=== PATIENT | female | born 1980 | race Caucasian/White ===

== ENCOUNTER → 2017-08-11 12:55 | Outpatient (CLI) | payer BC, SELFPAY ==
[2017-08-11 14:18] LABS: Absolute Neutrophil Count 5.5 X10^3/uL (2.0-7.7); Basophil# 0.02 X10^3/uL; Basophil% 0.2 % (0-1); Eosinophil# 0.33 X10^3/uL; Eosinophils% 3.7 % (0-5); Hematocrit 42.2 % (37-47); Hemoglobin 13.6 g/dl (12.0-15.0); Mean Corp Hgb Conc 32.2 g/gl (32-36); Mean Corpuscular Hgb 28.1 pg (27.0-32.0); Mean Corpuscular Volume 87.2 fL (81-99); Mean Platelet Vol. 10.9 fl (6.2-12.0); Monocyte# 0.65 X10^3/uL; Monocyte% 7.3 % (0-10); Neutrophil # 5.54 X10^3/uL (2.7-7.7); Neutrophil % 62.6 % (47-70); Platelet Count 257 K/mm3 (150-450); RBC Distribution Width CV 12.6 % (11.6-14.6); RBC Distribution Width SD 40.4 fl (35.1-43.9); Red Blood Count 4.84 M/mm3 (4.2-5.4); White Blood Count 8.9 K/mm3 (4.4-11.0)
[2017-08-11 14:22] LABS: POSITIVE COUNT NO; POSITIVE DIFFERENTIAL NO; POSITIVE MORPHOLOGY NO
[2017-08-11 14:38] LABS: Albumin, Serum 3.9 g/dL (3.2-5.0); Calcium,Total 8.8 mg/dL (8.5-10.1)
[2017-08-12 10:24] LABS: Vitamin D,25 Hydroxy 16.2 ng/mL (19.95-100.01)
== END ==
PROVIDERS: Family Provider Family Medicine; PCP Family Medicine; Visit Provider Family Medicine
DX: L30.1 Dyshidrosis [pompholyx] (principal); E55.9 Vitamin D deficiency, unspecified
CPT/HCPCS: 36415; 82040; 82306; 82310; 85025

== ENCOUNTER → 2017-09-19 16:38 | Outpatient (CLI) | payer BC, SELFPAY ==
[2017-09-19 17:37] LABS: Absolute Lymphocyte Count 3.22 X10^3/ul (0.83-4.51); Absolute Neutrophil Count 6.8 X10^3/uL (2.0-7.7); Basophil# 0.04 X10^3/uL; Basophil% 0.4 % (0-1); Eosinophil# 0.45 X10^3/uL; Hematocrit 40.6 % (37-47); Hemoglobin 13.5 g/dl (12.0-15.0); Lymphocyte # 3.22 X10^3/ul (4.0); Lymphocyte % 28.5 % (19-41); Mean Corp Hgb Conc 33.3 g/gl (32-36); Mean Corpuscular Hgb 28.6 pg (27.0-32.0); Mean Platelet Vol. 10.8 fl (6.2-12.0); Monocyte# 0.77 X10^3/uL; Monocyte% 6.8 % (0-10); Neutrophil # 6.77 X10^3/uL (2.7-7.7); Neutrophil % 59.8 % (47-70); Platelet Count 305 K/mm3 (150-450); RBC Distribution Width CV 12.2 % (11.6-14.6); RBC Distribution Width SD 37.8 fl (35.1-43.9); Red Blood Count 4.72 M/mm3 (4.2-5.4); White Blood Count 11.3 K/mm3 (4.4-11.0)
[2017-09-19 17:52] LABS: POSITIVE COUNT NO; POSITIVE DIFFERENTIAL NO; POSITIVE MORPHOLOGY NO
[2017-09-19 17:58] LABS: Vitamin D,25 Hydroxy 42.5 ng/mL (29.95-100.01)
[2017-09-19 18:37] LABS: ALB/GLOB Ratio 1.2 RATIO (0.9-2.4); AST(SGOT) 25 U/L (15-37); Alanine Aminotransfer ALT/SGPT 61 U/L (13-56); Alkaline Phosphatase 107 U/L (45-117); Anion Gap 9 (5-15); BUN 12 mg/dL (7-18); BUN/Creat Ratio 21.1 RATIO (10-20); Calcium,Total 8.6 mg/dL (8.5-10.1); Chloride 106 mmol/L (98-107); Creatinine, Serum 0.57 mg/dL (0.55-1.02); EST Glomerular Filtration Rate 128 mL/min (>60); Est Glom Filt Rate - Afr Amer 155 mL/min (>60); Ferritin 110 ng/mL (8-252); Globulin 3.4 g/dL (2.2-4.2); Glucose 87 mg/dL (74-106); Potassium 4.2 mmol/L (3.5-5.1); Protein, Total 7.4 g/dL (6.4-8.2); Sodium Level 140 mmol/L (136-145); Thyroid Stim Hormone (TSH) 1.68 uIU/mL (0.358-3.74)
== END ==
PROVIDERS: Family Provider Family Medicine; PCP Family Medicine; Visit Provider Family Medicine
DX: R53.83 Other fatigue (principal); E55.9 Vitamin D deficiency, unspecified
CPT/HCPCS: 36415; 80053; 82306; 82728; 84443; 85025

== ENCOUNTER 2019-07-19 11:10 | Inpatient (IN) | payer BC, SELFPAY ==
[2019-06-11 13:53] VITALS: BMI 43.4
[2019-07-19] VITALS (15 sets, daily range): BP systolic 99–150; BP diastolic 56–100; PULSE 97–132; RESP 16–22; TEMP 36.9–38; O2SAT 95–100; BMI 42.9; BMI 42.5
--- NOTE | 2019-07-19 12:02 | EKG12_ITS ---
Test Reason : CP Blood Pressure : / mmHG Vent. Rate : 122 BPM Atrial Rate : 122 BPM P-R Int : 130 ms QRS Dur : 088 ms QT Int : 304 ms P-R-T Axes : 033 048 037 degrees QTc Int : 433 ms Sinus tachycardia Otherwise normal ECG Confirmed by HERIBERTO SALAZAR, ROSARIO ([id number]), video tape editor ISABELLA DAVISON ([id number]) on 07/24/2019 7:53:53 AM Referred By: AMANDEEP Confirmed By:ROSARIO LOUIS MD
--- NOTE | 2019-07-19 12:02 | RAD_ITS ---
STUDY: X-RAY CHEST REASON FOR EXAM: Female, 38 years old. DX WITH FLU A ON THE . PT STATES SHE IS HAVING MORE CHEST PAIN, COUGH, AND CAN''T GET A DEEP BREATH TECHNIQUE: PA and lateral views of the chest. COMPARISON: None. FINDINGS: EKG electrodes are seen. Left lower lobe infiltrate. Follow-up is recommended. Blunting of the left costophrenic angle. Normal size heart. Normal mediastinum and ignacia. Normal visualized pulmonary arteries. Normal visualized aortic arch and descending thoracic aorta. Normal visualized thoracic spine. Normal visualized ribs, clavicles, and shoulders. There is no demonstrated abnormality of the visualized soft tissue structures of the upper abdomen. RAD/Chest PA and Lateral IMPRESSION: Left lower lung infiltrate and small left effusion. Electronically Signed: Crow Johnson, at 12:47 EST , Service support ,
--- NOTE | 2019-07-19 12:08 | ED.DCSUM_ITS ---
- ER Visit Summary Date of Service: 07/19/19 Chief Complaint: Cough and left-sided chest pain History of Present Illness: The patient is a 38 F past medical history of asthma and recent influenza treated with Tamiflu. Patient states she had influenza A 07/10/2000 26. But is feeling better. Now has developed a cough denies any hemoptysis. And left-sided chest discomfort. She is never had a DVT or PE no recent travel or surgery. No leg pain or swelling. She denies any cardiac history. There is no family history of clotting disorder or cardiac disease at a young age. Physical Examination: Middle-aged female no acute distress she is tachycardic at 125 her pulse ox 97% on room air. H EENT exam unremarkable. Neck nontender no JVD. No lymphadenopathy. Lungs coarse breath sounds. Cough. No rhonchi. No significant wheezing. Heart tachycardic rate about 125 no murmur. Chest wall nontender. Abdomen soft obese but nontender normal bowel sounds no peritoneal signs. Patient moving all 4 extremities. Calves are nontender without edema or cords. Neurologically she is awake alert with no focal motor deficits. Back nontender. Skin unremarkable. Test Results: Chest pain it very well may be pleurisy versus possible pneumonia. I think is very unlikely to be cardiac and unlikely to be a PE. Her only recent risk factor for PE is recent illness and she is been less mobile otherwise she is a non-smoker. She is on control pills. Chest x-ray AP lateral views 2 views read by myself and radiologist shows a left lower lobe pneumonia with an effusion. CBC shows an elevated white count of 27,000. Normal hemoglobin 13. Chemistries unremarkable normal creatinine and gap. Troponin normal. D-dimer elevated 1.48. EKG sinus tachycardia rate of 122 no acute signs of TX or ischemia. No S1 or T3. Emergency Department Course and Treatment: Undergo an evaluation for possible pneumonia versus other etiologies. Treatment Plan: Admitted to PCU. I added a lactic acid and blood cultures. She will be started on IV Rocephin and Zithromax. She is already been given Motrin p.o. She also be given morphine and Zofran for pain. She also be given a liter normal saline. And worked up for possible sepsis. Lactic acid is pending. Disposition: Discharge Impression: Left-sided chest pain secondary to left lower lobe pneumonia with small effusion. Status post recent influenza Sepsis This note was generated with [employer] dictation software. It may contain incorrect words, spelling, and punctuation that were not noted in review of the chart prior to signing ED Disposition - Plan for ED Patient: Referrals: Karl Atwood MD [Primary Care Provider] -
[2019-07-19] MEDS: Ibuprofen 400 MG Tablet 800 MG PO (12:27)
[2019-07-19 12:31] LABS: Absolute Lymphocyte Count 0.64 X10^3/uL (0.83-4.51); Absolute Neutrophil Count 25.1 X10^3/uL (2.0-7.7); Basophil# 0.05 X10^3/uL; Basophil% 0.2 % (0-1); Eosinophil# 0.14 X10^3/uL; Eosinophils% 0.5 % (0-5); Hematocrit 39.8 % (37-47); Hemoglobin 13.4 g/dL (12.0-15.0); Lymphocyte # 0.64 X10^3/ul (4.0); Lymphocyte % 2.3 % (19-41); Mean Corp Hgb Conc 33.7 g/dL (32-36); Mean Corpuscular Hgb 28.9 pg (27.0-32.0); Monocyte# 0.89 X10^3/uL; Monocyte% 3.3 % (0-10); NRBC Flagged by Analyzer 0 % (0-5); Neutrophil # 25.07 X10^3/uL (2.7-7.7); Neutrophil % 91.9 % (47-70); POSITIVE DIFFERENTIAL YES; POSITIVE MORPHOLOGY YES; Platelet Count 247 K/mm3 (150-450); RBC Distribution Width CV 12.2 % (11.6-14.6); Red Blood Count 4.63 M/mm3 (4.2-5.4); White Blood Count 27.3 K/mm3 (4.4-11.0)
[2019-07-19 12:46] LABS: D-Dimer Quantitative (DVT/PE) 1.48 FEU/ug/m (0.27-0.49)
[2019-07-19 12:47] LABS: Differential Indicated SCAN CRITERIA MET
[2019-07-19 12:49] LABS: Anion Gap 7 (5-15); BUN 10 mg/dL (7-18); BUN/Creat Ratio 9.5 RATIO (10-20); Calcium,Total 8.6 mg/dL (8.5-10.1); Chloride 105 mmol/L (98-107); Creatinine, Serum 1.05 mg/dL (0.55-1.02); EST Glomerular Filtration Rate 62 mL/min (>60); Est Glom Filt Rate - Afr Amer 76 mL/min (>60); Estimated Creatinine Clearance 71.34 ml/min; Glucose 146 mg/dL (74-106); Potassium 4.1 mmol/L (3.5-5.1); Sodium Level 137 mmol/L (136-145)
--- NOTE | 2019-07-19 13:01 | CT_ITS ---
STUDY: CTA CHEST REASON FOR EXAM: Female, 38 years old. CHEST PAIN/TACHYCARDIA/ELEVATED D-DIMER RADIATION DOSAGE (If Supplied By Facility): CTDIvol = ( 26.08 ) mGy, DLP = ( 546.01 ) mGycm TECHNIQUE: The examination was performed with the intravenous administration of IV 100mL Isovue-370. Post-processing of the angiographic images was performed, with multiplanar reformation and 3D reconstruction. Individualized dose optimization techniques were used for this CT. COMPARISON: Comparison is made with prior chest radiograph done earlier in the day. FINDINGS: Small benign-appearing bilateral axillary lymph nodes. Normal enhancement of the main pulmonary artery and right and left pulmonary arteries. Normal enhancement of the bilateral peripheral pulmonary arteries. There is no demonstrated pulmonary embolism. Normal thoracic aorta and visualized great vessels. There is no demonstrated aortic dissection. Normal heart and pericardium. Normal mediastinum. Normal hilar regions. Normal visualized trachea and bronchi. The lungs are well expanded. Consolidation in the left lower lobe. Normal pleura. Normal chest wall structures. Normal osseous structures. Mild hepatomegaly and fatty infiltration of the liver. Small hiatal hernia. CT/CTA Chest W/WO Contrast IMPRESSION: Left lower lobe consolidation. Electronically Signed: Crow Johnson, at 14:01 EST , Service support ,
--- NOTE | 2019-07-19 13:02 | PCM.HP.STD ---
History of Present Illness Date of Admission: 07/19/19 Chief Complaint: fever, shortness of breath, cough The patient is a 38 year old F with a PMH of asthma. She was admitted through the ED on 07/19/2019 with a complaint of shortness of breath of fever, chills and shortness of breath. Patient states she was treated for influenza A infection about a week and a half ago. She finished her Tamiflu course. However she noted about a day ago that she was having fever with temperature peaking at home at 105 Fahrenheit. She also had chills and a cough which was nonproductive and she felt short of breath. She also generalized malaise so she decided to come into the ED. In the ED, temperature peaked at 100.4 Fahrenheit and she was tachycardic and tachypneic. CBC showed WBC of 27.3. Chemistry showed creatinine of 1.05 and lactic acid of 4.3. Initial troponin was negative. Chest x-ray showed left lower lobe infiltrate and small left effusion. EKG showed sinus tachycardia. She has been admitted to be managed for sepsis due to community-acquired pneumonia. Of note lactic acid was 4.3. [] Past Medical History Medical History: Medical History (Last Reviewed 06/11/19 @ 13:53 by Sandoval Walton) Diabetes E11.9 Allergies sulfamethoxazole [From Bactrim] Allergy (Verified 07/19/19 11:11) Anaphylaxis trimethoprim [From Bactrim] Allergy (Verified 07/19/19 11:11) Anaphylaxis Home Medications: Ambulatory Orders Medication Instructions Recorded cetirizine 10 mg tablet 10 mg PO QDAY 07/17/17 mometasone-formoterol HFA 100 2 puff INHALATION BID 07/17/17 mcg-5 mcg/actuation aerosol inhaler diphenhydramine HCl 25 mg capsule 25 mg PO Q4H PRN #60 cap 08/10/17 Psychiatric History: No pertinent psych hx [employer] 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 Denies: Anorexia, Night Sweats Eyes: Denies: Blurred vision HEENT: Denies: Head Aches, Sinus Congestion, Sinus Drainage Cardiovascular: Denies: Chest Pain, Palpitations Respiratory: Reports: Cough, Shortness of Breath, Shortness of breath at rest, Shortness of breath upon exertion. Denies: Sputum production, Wheezing Gastrointestinal: Denies: Abdominal Pain, Nausea, Vomiting Genitourinary: Denies: Dysuria Musculoskeletal: Denies: Joint Pain, Joint Tenderness Skin: Denies: Rash, Wounds Neurological: Denies: Numbness, Tingling, Focal weakness Psychiatric: Denies: Anxiety, Depression, Homicidal Ideations, Suicidal Ideations Hematologic/ Lymphatic: Denies: Easy Bruising, Easy Bleeding VTE Information - Inpt Only VTE Present on Admission: No VTE Pharm Prophylaxis ordered?: Yes - Physical Exam Vitals/I&O's: Vital Signs Temp Pulse Resp BP Pulse Ox 99.1 F 115 H 22 H 99/81 H 100 07/19/19 11:11 07/19/19 11:53 07/19/19 11:53 07/19/19 11:53 07/19/19 12:30 Oxygen Delivery Method Room Air Weight: 274 lb Body Mass Index (BMI) 42.9 General: Alert, Oriented x3, Cooperative, - - looked uncomfortable. Obese HEENT: Atraumatic, PERRLA, EOMI, Normocephalic Oral: Dry Mucosa Neck: Supple, No JVD, Negative Carotid Bruits Lungs: Short of Breath, Tachypneic, - - decreased breath sounds bibasally, no wheezes or crackles. on room air Cardiovascular: Normal S1, Normal S2, No murmurs, Tachycardic Abdomen: Bowel Sounds Present, Soft, Non Tender, Non-Distended, No Hepato-splenomegaly Extremities: No clubbing, No cyanosis, No edema, Capillary Refill Less than 3 Seconds Skin: No rashes, No breakdown Musculoskeletal: No Tenderness to Palpation of Joints or Extremities Lymphatic: No Cervical, Supraclavicular, or Inguinal Adenopathy Neurological: Cranial nerves II-XII grossly intact, Neuro grossly intact, Motor Exam 5/5 strength throughout Psych/Mental Status: Normal Affect, Appropriate, Alert and oriented to time, place, person, mood and affect Laboratory Results 07/19/19 12:25: WBC 27.3 H, RBC 4.63, Hgb 13.4, Hct 39.8, MCV 86.0, MCH 28.9, MCHC 33.7, RDW Std Deviation 38.0, RDW Coeff of Jana 12.2, Plt Count 247, MPV 10.0, Immature Gran % (Auto) 1.800 H, Neut % (Auto) 91.9 H, Lymph % (Auto) 2.3 L, [place] % (Auto) 3.3, Eos % (Auto) 0.5, Baso % (Auto) 0.2, Absolute Neuts (auto) 25.1 H, Absolute Lymphs (auto) 0.64 L, Nucleated RBC % 0, Differential Comment 07/19/19 12:25: D-Dimer Quant (PE/DVT) 1.48 H* 07/19/19 12:25: Sodium 137, Potassium 4.1, Chloride 105, Carbon Dioxide 25.0, Anion Gap 7, BUN 10, Creatinine 1.05 H, Estim Creat Clear Calc 71.34, Est GFR (MDRD) Af Amer 76, Est GFR (MDRD) Non-Af 62, BUN/Creatinine Ratio 9.5 L, Glucose 146 H, Calcium 8.6, Troponin I < 0.015 Diagnostic Data Chest X-Ray 07/19/19 12:02 IMPRESSION: Left lower lung infiltrate and small left effusion. Electronically Signed: Crow Johnson, at 12:47 EST , Service support , Chest CTA 07/19/19 13:01 IMPRESSION: Left lower lobe consolidation. Electronically Signed: Crow Johnson, at 14:01 EST , Service support , Current Medications Azithromycin 500 mg/ Dextrose 255 mls @ 250 mls/hr IV X1 ONE Stop: 07/19/19 14:00 Ceftriaxone Sodium (Rocephin) 1 gm in 50 mls @ 100 mls/hr IV X1 ONE Stop: 07/19/19 13:28 Assessment/Plan All Active Problems (Last Reviewed 06/11/19 @ 13:53 by Sandoval Walton) Sinusitis (Acute) Contact dermatitis (Acute) Herpes simplex (Acute) 1. Severe sepsis due to community acquired pneumonia Likely post viral pneumonia as she was recently treated for influenza. SIRS criteria is 4/4 with fever, tachypnea, tachycardia and white cell count of 27.3. Chest x-ray showed left lower lobe infiltrate. Lactic acid was 4.3. She is not hypotensive. Admit to PCU with telemetry. Hydrate aggressively with IV fluids per sepsis protocol. Get blood cultures and sputum cultures as well as urine for strep and Legionella. Sputum culture if sputum becomes productive. Start on IV vancomycin and Zosyn. CTA of the chest was negative for PE and showed a left lower lobe pneumonia. repeat lactic acid per sepsis protocol breathing treatments with bronchodilators 2. Lactic acidosis: due to severe sepsis. management as under 1. 3. History of asthma: Not in exacerbation. Continue mometasone formoterol. Breathing treatments with bronchodilators. DVT prophylaxis: Lovenox Code Visit Inpatient E&M: 49454 Init Hosp L3
[2019-07-19] MEDS: Ondansetron 4 MG/2 ML Vial IV (13:09)
[2019-07-19] MEDS: morphine 8 MG/ML Syringe 6 MG IV (13:10)
[2019-07-19] MEDS: 0.9% Normal Saline 1,000 ML 999 ML IV ×5 (13:17→18:57)
[2019-07-19] MEDS: Ceftriaxone 1 GM/50 ML BAG IV (13:18)
[2019-07-19 13:58] LABS: Lactic Acid 4.3 mmol/L (0.4-1.9)
--- NOTE | 2019-07-19 15:15 | EKG12_ITS ---
Test Reason : CP Blood Pressure : / mmHG Vent. Rate : 118 BPM Atrial Rate : 118 BPM P-R Int : 146 ms QRS Dur : 084 ms QT Int : 318 ms P-R-T Axes : 023 024 014 degrees QTc Int : 445 ms Sinus tachycardia Otherwise normal ECG No previous ECGs available Confirmed by FRANK SALAZAR, NAYAN ([id number]), avid editor CHITRA MOFFETT ([id number]) on 07/24/2019 8:56:22 AM Referred By: AUTUMN Confirmed By:NAYAN MARIE MD
[2019-07-19] MEDS: Morphine 2 MG/ML Syringe IV ×2 (16:15→20:22)
--- NOTE | 2019-07-19 16:23 | PCM.RX.CS ---
Consult Pharmacy has been consulted to manage selected antiobiotic: Vancomycin Type of Consult: New start Suspected Infection: Pneumonia Prior Doses of Antibiotics Received/Current Regimen: VANCOMYCIN LOADING DOSE OF 2000MG IV 07/19 @ 1602 Labs: Sodium 137 mmol/L (136-145) 07/19/19 12:25 Potassium 4.1 mmol/L (3.5-5.1) 07/19/19 12:25 Chloride 105 mmol/L (98-107) 07/19/19 12:25 Carbon Dioxide 25.0 mmol/L (21.0-32.0) 07/19/19 12:25 Anion Gap 7 (5-15) 07/19/19 12:25 BUN 10 mg/dL (7-18) 07/19/19 12:25 Creatinine 1.05 mg/dL (0.55-1.02) H 07/19/19 12:25 Est GFR (MDRD) Af Amer 76 mL/min (>60) 07/19/19 12:25 Est GFR (MDRD) Non-Af 62 mL/min (>60) 07/19/19 12:25 BUN/Creatinine Ratio 9.5 RATIO (10-20) L 07/19/19 12:25 Glucose 146 mg/dL (74-106) H 07/19/19 12:25 Weight used for dosin kg Estimated Creatinine Clearance: 99.8 Goal Trough: 15-20 mcg/mL Pharmacy Plan for Drug Dosin. Loading dose of 2000mg given at 1602 2. Will start 1250mg Q8H 07/20 @ 0000 based on weight and renal function 3. Trough ordered prior to the 4th dose 4. Pharmacy Service will continue to monitor and adjust dosing as required. Labs to be done on [date and time ordered]: 07/20/2019 @ 1530
[2019-07-19 17:26] LABS: Reflex Lactate? Y
[2019-07-19] MEDS: Acetaminophen 325 MG Tablet 650 MG PO (19:03)
[2019-07-19] MEDS: Albuterol 2.5 MG/3 ML VIAL.NEB. INHALATION (19:22)
[2019-07-19] MEDS: Budesonide Respules 0.5 MG/2 ML AMPUL.NEB. INHALATION (19:22)
[2019-07-19] MEDS: 0.9% Saline Lock 10 ML Syringe IV (20:22)
[2019-07-19] MEDS: guaiFENesin 10 ML UDC (200MG/10ML) 20 ML PO (22:29)
[2019-07-20] VITALS (13 sets, daily range): BP systolic 143–147; BP diastolic 68–90; PULSE 92–115; RESP 14–18; TEMP 36.7–36.9; O2SAT 95–100
[2019-07-20] MEDS: 0.9% Saline Lock 10 ML Syringe IV ×5 (00:07→16:33)
[2019-07-20] MEDS: Morphine 2 MG/ML Syringe IV ×4 (00:11→21:05)
[2019-07-20] MEDS: guaiFENesin 10 ML UDC (200MG/10ML) 20 ML PO (05:52)
[2019-07-20] MEDS: Acetaminophen 325 MG Tablet 650 MG PO ×3 (07:27→21:05)
[2019-07-20] MEDS: Albuterol 2.5 MG/3 ML VIAL.NEB. INHALATION ×3 (07:39→20:04)
[2019-07-20] MEDS: Budesonide Respules 0.5 MG/2 ML AMPUL.NEB. INHALATION ×2 (07:39→20:04)
[2019-07-20 07:57] LABS: Absolute Neutrophil Count 18.4 X10^3/uL (2.0-7.7); Basophil# 0.04 X10^3/uL; Basophil% 0.2 % (0-1); Eosinophil# 0.04 X10^3/uL; Eosinophils% 0.2 % (0-5); Hematocrit 34.9 % (37-47); Hemoglobin 11.4 g/dL (12.0-15.0); Lymphocyte % 9.7 % (19-41); Mean Corp Hgb Conc 32.7 g/dL (32-36); Mean Corpuscular Hgb 28.6 pg (27.0-32.0); Mean Corpuscular Volume 87.7 fL (81-99); Mean Platelet Vol. 10.2 fl (6.2-12.0); Monocyte# 0.96 X10^3/uL; Monocyte% 4.4 % (0-10); NRBC Flagged by Analyzer 0 % (0-5); Neutrophil # 18.35 X10^3/uL (2.7-7.7); Neutrophil % 84.5 % (47-70); Platelet Count 213 K/mm3 (150-450); RBC Distribution Width CV 12.9 % (11.6-14.6); RBC Distribution Width SD 41.1 fl (35.1-43.9); Red Blood Count 3.98 M/mm3 (4.2-5.4); White Blood Count 21.7 K/mm3 (4.4-11.0)
[2019-07-20 08:18] LABS: Anion Gap 4 (5-15); BUN 9 mg/dL (7-18); BUN/Creat Ratio 12.9 RATIO (10-20); Calcium,Total 7.9 mg/dL (8.5-10.1); Chloride 113 mmol/L (98-107); EST Glomerular Filtration Rate 100 mL/min (>60); Est Glom Filt Rate - Afr Amer 122 mL/min (>60); Estimated Creatinine Clearance 107.01 ml/min; Glucose 92 mg/dL (74-106); Potassium 3.7 mmol/L (3.5-5.1); Sodium Level 142 mmol/L (136-145)
[2019-07-20 08:21] LABS: Lactic Acid 1.3 mmol/L (0.4-1.9)
[2019-07-20] MEDS: Enoxaparin 40 MG/0.4 ML Syringe SC (09:38)
[2019-07-20] MEDS: Loratadine 10 MG Tablet PO (09:38)
--- NOTE | 2019-07-20 10:28 | PN_ITS ---
Subjective: Patient seen and examined. She feels much better today. Coughing has improved markedly and shortness of breath is also improved. She denies any fever or chills, nausea vomiting or diarrhea or palpitations. Review of systems otherwise negative. Labs and vitals reviewed. Tachycardia and tachypnea as well as fever have resolved. Labs and vitals reviewed. Wbc is down to 21.7. lactic acid down to 1.3. Vitals/I&O's: Vital Signs Temp Pulse Resp BP Pulse Ox 98.3 F 115 H 17 145/68 H 95 07/20/19 09:32 07/20/19 09:32 07/20/19 09:32 07/20/19 09:32 07/20/19 09:32 Oxygen Delivery Method Room Air Weight: 271 lb 2.697 oz Body Mass Index (BMI) 42.5 Intake and Output for Last 24 Hours 07/18/19 07/19/19 07/20/19 23:59 23:59 23:59 Intake Total 6102.63 / 6102.63 598.92 / 598.92 Output Total 700 / 700 Balance 6102.63 / 6102.63 -101.08 / -101.08 General: Alert, Oriented x3, Cooperative, Obese HEENT: Atraumatic, PERRLA, EOMI, Normocephalic Oral: Dry Mucosa Neck: Supple, No JVD, Negative Carotid Bruits Lungs: diminished breath sounds bibasally, no wheezes or crackles. On room air. Cardiovascular: Normal S1, Normal S2, No murmurs, Tachycardic Abdomen: Bowel Sounds Present, Soft, Non Tender, Non-Distended, No Hepato- splenomegaly Extremities: No clubbing, No cyanosis, No edema, Capillary Refill Less than 3 Seconds Skin: No rashes, No breakdown Musculoskeletal: No Tenderness to Palpation of Joints or Extremities Lymphatic: No Cervical, Supraclavicular, or Inguinal Adenopathy Neurological: Cranial nerves II-XII grossly intact, Neuro grossly intact, Motor Exam 5/5 strength throughout Psych/Mental Status: Normal Affect, Appropriate, Alert and oriented to time, place, person, mood and affect Microbiology Past 72 Hours 07/20/19 02:05 Urine, Clean Catch Streptococcus pneumoniae Antigen (M - Final Streptococcus pneumonia Ag 07/20/19 02:05 Urine, Clean Catch Legionella Antigen - Final Laboratory Results 07/19/19 12:25: WBC 27.3 H, RBC 4.63, Hgb 13.4, Hct 39.8, MCV 86.0, MCH 28.9, MCHC 33.7, RDW Std Deviation 38.0, RDW Coeff of Jana 12.2, Plt Count 247, MPV 10.0, Immature Gran % (Auto) 1.800 H, Neut % (Auto) 91.9 H, Lymph % (Auto) 2.3 L , [place] % (Auto) 3.3, Eos % (Auto) 0.5, Baso % (Auto) 0.2, Absolute Neuts (auto) 25.1 H, Absolute Lymphs (auto) 0.64 L, Nucleated RBC % 0, Differential Comment 07/19/19 12:25: D-Dimer Quant (PE/DVT) 1.48 H* 07/19/19 12:25: Sodium 137, Potassium 4.1, Chloride 105, Carbon Dioxide 25.0, Anion Gap 7, BUN 10, Creatinine 1.05 H, Estim Creat Clear Calc 71.34, Est GFR (MDRD) Af Amer 76, Est GFR (MDRD) Non-Af 62, BUN/Creatinine Ratio 9.5 L, Glucose 146 H, Calcium 8.6, Troponin I < 0.015 07/19/19 13:13: Lactic Acid 4.3 H* 07/19/19 15:32: Troponin I < 0.015 07/19/19 17:55: Troponin I < 0.015 07/19/19 17:55: Lactic Acid 3.0 H* 07/19/19 21:29: Troponin I < 0.015 07/20/19 07:44: WBC 21.7 H, RBC 3.98 L, Hgb 11.4 L, Hct 34.9 L, MCV 87.7, MCH 28.6, MCHC 32.7, RDW Std Deviation 41.1, RDW Coeff of Jana 12.9, Plt Count 213, MPV 10.2, Immature Gran % (Auto) 1.000 H, Neut % (Auto) 84.5 H, Lymph % (Auto) 9.7 L, [place] % (Auto) 4.4, Eos % (Auto) 0.2, Baso % (Auto) 0.2, Absolute Neuts (auto) 18.4 H, Absolute Lymphs (auto) 2.10, Nucleated RBC % 0 07/20/19 07:44: Sodium 142, Potassium 3.7, Chloride 113 H, Carbon Dioxide 25.0, Anion Gap 4 L, BUN 9, Creatinine 0.70, Estim Creat Clear Calc 107.01, Est GFR (MDRD) Af Amer 122, Est GFR (MDRD) Non-Af 100, BUN/Creatinine Ratio 12.9, Glucose 92, Calcium 7.9 L 07/20/19 07:44: Lactic Acid 1.3 Diagnostic Data Chest X-Ray 07/19/19 12:02 IMPRESSION: Left lower lung infiltrate and small left effusion. Electronically Signed: Crow Johnson, at 12:47 EST , Service support , Chest CTA 07/19/19 13:01 IMPRESSION: Left lower lobe consolidation. Electronically Signed: Crow Johnson, at 14:01 EST , Service support , Current Medications Acetaminophen (Tylenol) 650 mg PO Q6H PRN PRN PRN Reason: Pain Score 1-3/Temp > 100.7 F Last Admin: 07/20/19 07:27 Dose: 650 mg Documented by: Albuterol Sulfate (Ventolin Aerosols) 2.5 mg INHALATION Q6HWA.RT [facility] Last Admin: 07/20/19 07:39 Dose: 2.5 mg Documented by: Albuterol Sulfate (Ventolin Aerosols) 2.5 mg INHALATION Q2H PRN PRN PRN Reason: SOB/Wheezing Budesonide (Pulmicort Aerosol) 0.5 mg INHALATION Q12H.RT [facility] Last Admin: 07/20/19 07:39 Dose: 0.5 mg Documented by: Diphenhydramine HCl (Benadryl) 25 mg PO Q4H PRN PRN PRN Reason: allergy symptoms Enoxaparin Sodium (Lovenox) 40 mg SC DAILY [facility] Last Admin: 07/20/19 09:38 Dose: 40 mg Documented by: Glucagon () 1 mg IM .X1 PRN PRN Reason: Hypoglycemia Guaifenesin (Robitussin) 20 ml PO Q4H PRN PRN PRN Reason: COUGH Last Admin: 07/20/19 05:52 Dose: 20 ml Documented by: Piperacillin Sod/Tazobactam (Sod 3.375 gm/ Sodium Chloride) 50 mls @ 12.5 mls/hr IV Q8 PHYLLIS Last Admin: 07/20/19 05:50 Dose: 12.5 mls/hr Documented by: Vancomycin IV Pharmacy to Dose (1 ea/ Sodium Chloride) 500 mls @ 250 mls/hr IV X1 PRN; Protocol PRN Reason: Rx to Dose Dextrose (Dextrose 10%-Water) 250 mls @ 999 mls/hr IV .Q16M PRN; Protocol PRN Reason: HYPOGLYCEMIA Vancomycin HCl 1,250 mg/ (Sodium Chloride) 275 mls @ 167 mls/hr IV Q8H [facility] Last Infusion: 07/20/19 09:38 Dose: Infused Documented by: Sodium Chloride () 250 mls @ 15 mls/hr IV .[id number] PRN PRN Reason: Saline Flush Last Infusion: 07/20/19 03:00 Dose: 0 mls/hr Documented by: Loratadine (Claritin) 10 mg PO DAILY [facility] Last Admin: 07/20/19 09:38 Dose: 10 mg Documented by: Morphine Sulfate () 2 mg IV Q3H PRN PRN PRN Reason: Pain Score 6-10/10 Last Admin: 07/20/19 09:37 Dose: 2 mg Documented by: Ondansetron HCl (Zofran) 4 mg IV Q8H PRN PRN PRN Reason: NAUSEA/VOMITING Sodium Chloride () 10 - 40 ml IV UD PRN PRN Reason: SALINE FLUSH Last Admin: 07/20/19 09:37 Dose: 10 ml Documented by: STROKE Vital Signs/Narrative: Vital Signs Temp Pulse Resp BP Pulse Ox 07/20/19 09:32 98.3 F 115 H 17 145/68 H 95 07/20/19 07:39 97 16 100 07/20/19 07:16 99 Medical Necessity - Tobacco Use Smoking Status: Former smoker Tobacco Use: Non-smoker Assessment/Plan All Active Problems (Last Reviewed 06/11/19 @ 13:53 by Sandoval Walton) Sinusitis (Acute) Contact dermatitis (Acute) Herpes simplex (Acute) 1. Severe sepsis due to community acquired pneumonia * Likely post viral pneumonia as she was recently treated for influenza. * fever, tachycardia and tachypnear have resolved. leucocytosis is down to 21. of note, she had also been on steroids, which could be contributing to the leucocytosis * Chest x-ray showed left lower lobe infiltrate. * lactic acid down to 1.3 with aggressive hydration * urine positive for strep antigen * blood cultures pending * will continue IV vancomycin and zosyn for today and await blood cultures * breathing treatments with bronchodilators. * 2. Lactic acidosis: due to severe sepsis. has trended down to 1.3. 3. History of asthma: Not in exacerbation. Continue mometasone formoterol. Breathing treatments with bronchodilators. DVT prophylaxis: Lovenox Code Visit Inpatient E&M: 42051 Subs Hosp L2
--- NOTE | 2019-07-20 13:10 | CASEMGMT ---
RN CM BRIDGE OPERATOR CM to room to meet with patient for initial transition planning/care coordination assessment. RN ELOINA introduced self and role at [facility]. Pt voices understanding and consents to assessment at this time. Pt resting in bed in no distress at this time. Pt is A/O at this time and answers all questions appropriately. Care providers, pharmacy, and demographics verified/updated at this time. PCP: Dr Karl Atwood Specialists: none Preferred Pharmacy: [facility] Retail Insurance: [employer] Prescription Benefit: Yes Living Will/HPOA: States does not have LW or HCPOA . Interested in more information but states does not want to talk with SW at this time to complete paperwork. Provided information on advanced directives and given Social Service rac card with number to call if chooses in the future to utilize [facility] social work for advanced directive completion. LNOK: , Bruno. 3 children: ages 22, 19, 8 Living Arrangements: Lives with her in one-story home w/basement. 8-yr-old son lives with them. Independent w/ADL's and IADL's. Transportation: Pt states drives self and states no transportation concerns at this time. also drives. DME: Denies using any DME and denies needs. HHC/SNF: No history of either. No needs identified. PT/OT evals pending. Pt states she feels she is starting to feel better and not as weak as she had been. Pt made aware if she would be interested in OP therapy, to discuss with her PCP. She voices understanding. Pt wishes to return home and states has no concerns with going home at time of discharge. CM to follow for any discharge planning/needs. Pt voices no concerns/needs at this time. Advised pt to ask for CM if any further questions/concerns/needs arise. Voices understanding. PLAN: Home Lobito GARNETT RN, CM
[2019-07-20 16:06] LABS: Vancomycin, Trough Level 11.6 ug/mL (5.0-15.0)
--- NOTE | 2019-07-20 16:35 | PCM.RX.CS ---
Consult Pharmacy has been consulted to manage selected antiobiotic: Vancomycin Type of Consult: Follow-up Suspected Infection: Pneumonia Prior Doses of Antibiotics Received/Current Regimen: 3 Labs: Sodium 142 mmol/L (136-145) 07/20/19 07:44 Potassium 3.7 mmol/L (3.5-5.1) 07/20/19 07:44 Chloride 113 mmol/L (98-107) H 07/20/19 07:44 Carbon Dioxide 25.0 mmol/L (21.0-32.0) 07/20/19 07:44 Anion Gap 4 (5-15) L 07/20/19 07:44 BUN 9 mg/dL (7-18) 07/20/19 07:44 Creatinine 0.70 mg/dL (0.55-1.02) 07/20/19 07:44 Est GFR (MDRD) Af Amer 122 mL/min (>60) 07/20/19 07:44 Est GFR (MDRD) Non-Af 100 mL/min (>60) 07/20/19 07:44 BUN/Creatinine Ratio 12.9 RATIO (10-20) 07/20/19 07:44 Glucose 92 mg/dL (74-106) 07/20/19 07:44 Vancomycin Trough 11.6 ug/mL (5.0-15.0) 07/20/19 15:18 REPEAT VANCO TROUGH PRIOR TO 4TH NEW DOSE = 07/21/19 AT 2330 Microbiology: Microbiology 07/20/19 13:36 Sputum, Expectorated/Coughed Gram Stain - Final 07/20/19 02:05 Urine, Clean Catch Streptococcus pneumoniae Antigen (M - Final Streptococcus pneumonia Ag 07/20/19 02:05 Urine, Clean Catch Legionella Antigen - Final Weight used for dosin kg Estimated Creatinine Clearance: 107 Goal Trough: 15-20 mcg/mL - INCREASE DOSE TO 1500MG Q8H BASED ON TROUGH LEVEL 11.6 Pharmacy Plan for Drug Dosing: Pharmacy Service will continue to monitor and adjust dosing as required.
[2019-07-21 03:00] VITALS: BP 143/98; PULSE 84; PULSE 87; RESP 14; TEMP 36.8; O2SAT 98
[2019-07-21] MEDS: Acetaminophen 325 MG Tablet 650 MG PO (04:33)
[2019-07-21] MEDS: Morphine 2 MG/ML Syringe IV (04:33)
[2019-07-21 07:00] VITALS: PULSE 77
[2019-07-21 07:09] LABS: Absolute Lymphocyte Count 1.74 X10^3/uL (0.83-4.51); Absolute Neutrophil Count 8.9 X10^3/uL (2.0-7.7); Basophil# 0.02 X10^3/uL; Basophil% 0.2 % (0-1); Eosinophil# 0.11 X10^3/uL; Hematocrit 32.4 % (37-47); Hemoglobin 10.1 g/dL (12.0-15.0); Lymphocyte # 1.74 X10^3/ul (4.0); Lymphocyte % 15.5 % (19-41); Mean Corp Hgb Conc 31.2 g/dL (32-36); Mean Corpuscular Hgb 28.3 pg (27.0-32.0); Mean Corpuscular Volume 90.8 fL (81-99); Mean Platelet Vol. 10.5 fl (6.2-12.0); Monocyte# 0.38 X10^3/uL; Monocyte% 3.4 % (0-10); NRBC Flagged by Analyzer 0 % (0-5); Neutrophil # 8.89 X10^3/uL (2.7-7.7); Neutrophil % 79.4 % (47-70); Platelet Count 205 K/mm3 (150-450); RBC Distribution Width SD 43.8 fl (35.1-43.9); Red Blood Count 3.57 M/mm3 (4.2-5.4); White Blood Count 11.2 K/mm3 (4.4-11.0)
[2019-07-21] MEDS: Albuterol 2.5 MG/3 ML VIAL.NEB. INHALATION ×2 (07:09→12:28)
[2019-07-21] MEDS: Budesonide Respules 0.5 MG/2 ML AMPUL.NEB. INHALATION (07:09)
[2019-07-21 07:30] LABS: Anion Gap 5 (5-15); BUN 7 mg/dL (7-18); BUN/Creat Ratio 11.8 RATIO (10-20); Calcium,Total 7.9 mg/dL (8.5-10.1); Chloride 112 mmol/L (98-107); Creatinine, Serum 0.59 mg/dL (0.55-1.02); EST Glomerular Filtration Rate 121 mL/min (>60); Est Glom Filt Rate - Afr Amer 146 mL/min (>60); Estimated Creatinine Clearance 126.96 ml/min; Glucose 98 mg/dL (74-106); Sodium Level 141 mmol/L (136-145)
[2019-07-21 07:35] VITALS: PULSE 96; RESP 20
[2019-07-21 08:05] VITALS: BP 151/100; PULSE 98; RESP 16; TEMP 36.8; O2SAT 100; O2SAT 97
--- NOTE | 2019-07-21 10:51 | DCINST_ITS ---
You will use the following diet at home:: Regular Your food should be the consistency of: Regular Your liquids should be the consistency of: Regular/Thin Discharge Activity: Return to Normal Activity Return to work on:: 07/30/19 Call your doctor if you observe: Fever of 101 or Higher, Shortness of breath, Dizziness, Fainting spells, Swelling in the ankles, Chest pain, Increased palpitations (irregular heartbeat) Allergies/Adverse Reactions: Allergies sulfamethoxazole [From Bactrim] Allergy (Verified 07/19/19 11:11) Anaphylaxis trimethoprim [From Bactrim] Allergy (Verified 07/19/19 11:11) Anaphylaxis Medications to take at Discharge cetirizine 10 mg tablet 10 mg PO QDAY 07/17/17 mometasone-formoterol HFA 100 mcg-5 mcg/actuation aerosol inhaler 2 puff INHALATION BID 07/17/17 diphenhydramine HCl 25 mg capsule 25 mg PO Q4H PRN #60 cap 08/10/17 Amox/Clavulanate Tablet [Augmentin Tablet] 875 mg PO Q12H #10 tab 07/21/19 The following prescriptions were given: Amox/Clavulanate Tablet [Augmentin Tablet] 875 mg PO Q12H #10 tab Transmission Status: Pending to [facility] Primary Care Physician: Karl Atwood MD [Primary Care Provider] - Please follow up with your Primary Care Physician in: 3-5 days Test Results: Test results from this visit will be discussed in further detail at your follow- up appointment, if applicable. Please Follow Up With: Karl Atwood MD
--- NOTE | 2019-07-21 10:52 | PCM.DC.SUM ---
Discharge Date and Diagnosis Date of Admission: 07/19/19 Date of Discharge: 07/21/19 Hospital Course and Treatment Imaging Results: CXR: IMPRESSION: Left lower lung infiltrate and small left effusion. CTA Chest: IMPRESSION: Left lower lobe consolidation. Consults: None Operations: None Procedures: None Summary of Care Provided: HPI: The patient is a 38 year old F with a PMH of asthma. She was admitted through the ED on 07/19/2019 with a complaint of shortness of breath of fever, chills and shortness of breath. Patient states she was treated for influenza A infection about a week and a half ago. She finished her Tamiflu course. However she noted about a day ago that she was having fever with temperature peaking at home at 105 Fahrenheit. She also had chills and a cough which was nonproductive and she felt short of breath. She also generalized malaise so she decided to come into the ED. In the ED, temperature peaked at 100.4 Fahrenheit and she was tachycardic and tachypneic. CBC showed WBC of 27.3. Chemistry showed creatinine of 1.05 and lactic acid of 4.3. Initial troponin was negative. Chest x-ray showed left lower lobe infiltrate and small left effusion. EKG showed sinus tachycardia. She has been admitted to be managed for sepsis due to community-acquired pneumonia. Of note lactic acid was 4.3. Hospital Course: 1. Sepsis secondary to community-acquired pneumonia/history of [id number] female who was recently treated for influenza A, presented back to the hospital with cough, fever, leukocytosis. She was found to have a left lower lobe infiltrate on chest x-ray and CT of the chest. No PE was found. Her leukocytosis today is 11 down from 27.3, and she is afebrile. She feels much better today and would like to go home. Her blood cultures are negative and her urine antigens are positive for strep pneumonia. Will discharge on 5 days of Augmentin twice daily, as she improved on vancomycin and Zosyn. She will need to follow-up with her primary care doctor in 3 to 5 days. I discussed the plan with her and her family and they were all in agreement and understood the risks and benefits of going home. - Physical Exam Vitals/I&O's: Vital Signs Temp Pulse Resp BP Pulse Ox 98.3 F 98 16 151/100 H 100 07/21/19 08:05 07/21/19 08:05 07/21/19 08:05 07/21/19 08:05 07/21/19 08:05 Oxygen Delivery Method Room Air Weight: 271 lb 2.697 oz Body Mass Index (BMI) 42.5 Intake and Output for Last 24 Hours 07/19/19 07/20/19 07/21/19 23:59 23:59 23:59 Intake Total 6102.63 / 6102.63 2413.92 / 2413.92 846.25 / 846.25 Output Total 700 / 700 Balance 6102.63 / 6102.63 1713.92 / 1713.92 846.25 / 846.25 General: Alert, Oriented x3, Cooperative, No apparent distress, - - Cough HEENT: Atraumatic, PERRLA, EOMI, Normocephalic Oral: Moist Mucosa Neck: Supple, No JVD Lungs: Clear to auscultation, Normal air movement, No rhonchi, No wheeze, No rales, Diminished Cardiovascular: Regular rate, Regular Rhythm, Normal S1, Normal S2, No murmurs Abdomen: Soft, Non Tender, Non-Distended, No Hepato-splenomegaly Extremities: No edema, Capillary Refill Less than 3 Seconds Skin: No rashes, No breakdown Neurological: Neuro grossly intact, Sensory exam intact to light touch and pain Psych/Mental Status: Normal Affect, Appropriate Microbiology Past 72 Hours 07/19/19 13:20 Blood Culture (Wb) - Left Hand Blood Culture - Preliminary No growth in 48 hours. 07/19/19 13:13 Blood Culture (Wb) - Anticubital Left Blood Culture - Preliminary No growth in 48 hours. 07/20/19 13:36 Sputum, Expectorated/Coughed Gram Stain - Final 07/20/19 02:05 Urine, Clean Catch Streptococcus pneumoniae Antigen (M - Final Streptococcus pneumonia Ag 07/20/19 02:05 Urine, Clean Catch Legionella Antigen - Final Laboratory Results 07/20/19 15:18: Vancomycin Trough 11.6 07/21/19 06:49: WBC 11.2 H, RBC 3.57 L, Hgb 10.1 L, Hct 32.4 L, MCV 90.8, MCH 28.3, MCHC 31.2 L, RDW Std Deviation 43.8, RDW Coeff of Jana 13.0, Plt Count 205, MPV 10.5, Immature Gran % (Auto) 0.500, Neut % (Auto) 79.4 H, Lymph % (Auto) 15.5 L, [place] % (Auto) 3.4, Eos % (Auto) 1.0, Baso % (Auto) 0.2, Absolute Neuts (auto) 8.9 H, Absolute Lymphs (auto) 1.74, Nucleated RBC % 0 07/21/19 06:49: Sodium 141, Potassium 4.0, Chloride 112 H, Carbon Dioxide 24.0, Anion Gap 5, BUN 7, Creatinine 0.59, Estim Creat Clear Calc 126.96, Est GFR (MDRD) Af Amer 146, Est GFR (MDRD) Non-Af 121, BUN/Creatinine Ratio 11.8, Glucose 98, Calcium 7.9 L Current Medications Acetaminophen (Tylenol) 650 mg PO Q6H PRN PRN PRN Reason: Pain Score 1-3/Temp > 100.7 F Last Admin: 07/21/19 04:33 Dose: 650 mg Documented by: Albuterol Sulfate (Ventolin Aerosols) 2.5 mg INHALATION Q6HWA.RT [facility] Last Admin: 07/21/19 07:09 Dose: 2.5 mg Documented by: Albuterol Sulfate (Ventolin Aerosols) 2.5 mg INHALATION Q2H PRN PRN PRN Reason: SOB/Wheezing Budesonide (Pulmicort Aerosol) 0.5 mg INHALATION Q12H.RT [facility] Last Admin: 07/21/19 07:09 Dose: 0.5 mg Documented by: Diphenhydramine HCl (Benadryl) 25 mg PO Q4H PRN PRN PRN Reason: allergy symptoms Enoxaparin Sodium (Lovenox) 40 mg SC DAILY [facility] Last Admin: 07/20/19 09:38 Dose: 40 mg Documented by: Glucagon () 1 mg IM .X1 PRN PRN Reason: Hypoglycemia Guaifenesin (Robitussin) 20 ml PO Q4H PRN PRN PRN Reason: COUGH Last Admin: 07/20/19 05:52 Dose: 20 ml Documented by: Piperacillin Sod/Tazobactam (Sod 3.375 gm/ Sodium Chloride) 50 mls @ 12.5 mls/hr IV Q8 [facility] Last Infusion: 07/21/19 10:41 Dose: Infused Documented by: Vancomycin IV Pharmacy to Dose (1 ea/ Sodium Chloride) 500 mls @ 250 mls/hr IV X1 PRN; Protocol PRN Reason: Rx to Dose Dextrose (Dextrose 10%-Water) 250 mls @ 999 mls/hr IV .Q16M PRN; Protocol PRN Reason: HYPOGLYCEMIA Sodium Chloride () 250 mls @ 15 mls/hr IV .[id number] PRN PRN Reason: Saline Flush Last Infusion: 07/21/19 01:17 Dose: 0 mls/hr Documented by: Vancomycin HCl 1,500 mg/ (Sodium Chloride) 530 mls @ 250 mls/hr IV Q8H [facility] Last Admin: 07/21/19 09:35 Dose: 250 mls/hr Documented by: Loratadine (Claritin) 10 mg PO DAILY [facility] Last Admin: 07/20/19 09:38 Dose: 10 mg Documented by: Morphine Sulfate () 2 mg IV Q3H PRN PRN PRN Reason: Pain Score 6-10/10 Last Admin: 07/21/19 04:33 Dose: 2 mg Documented by: Ondansetron HCl (Zofran) 4 mg IV Q8H PRN PRN PRN Reason: NAUSEA/VOMITING Sodium Chloride () 10 - 40 ml IV UD PRN PRN Reason: SALINE FLUSH Last Admin: 07/20/19 16:33 Dose: 20 ml Documented by: Discharge Activity: Return to Normal Activity Return to work on:: 07/30/19 Call your doctor if you observe: Fever of 101 or Higher, Shortness of breath, Dizziness, Fainting spells, Swelling in the ankles, Chest pain, Increased palpitations (irregular heartbeat) Home Medications: Medications to take at Discharge cetirizine 10 mg tablet 10 mg PO QDAY 07/17/17 mometasone-formoterol HFA 100 mcg-5 mcg/actuation aerosol inhaler 2 puff INHALATION BID 07/17/17 diphenhydramine HCl 25 mg capsule 25 mg PO Q4H PRN #60 cap 08/10/17 Amox/Clavulanate Tablet [Augmentin Tablet] 875 mg PO Q12H #10 tab 02/01/20 Following Prescrptions Were Given to Patient: Amox/Clavulanate Tablet [Augmentin Tablet] 875 mg PO Q12H #10 tab Transmission Status: Pending to [facility] Primary Care Physician: Karl Atwood MD [Primary Care Provider] - Please follow up with your Primary Care Physician in: 3-5 days Please Follow Up With: Karl Atwood MD Disposition: Home Minutes spent on discharge:: 35 Patient Condition:: Stable Medical Necessity - Tobacco Use Smoking Status: Former smoker Tobacco Use: Non-smoker Meaningful Use Info Meaningful Use Diagnoses (Choose all that apply): None applicable Code Visit Inpatient E&M: 47971 Disch Hosp
[2019-07-21] MEDS: Loratadine 10 MG Tablet PO (11:29)
--- NOTE | 2019-07-23 14:21 | CASEMGMT ---
Case Management DC F/u Call: DC Date: Tuesday07/21/2019 DC Diagnosis: None. Hospital Course: 1. Sepsis secondary to community-acquired pneumonia/history of asthma- DC Disposition: Home Lace/Strata: 03/22 Called patient listed cell phone on demographics, no answer, ,VIBHA did confirm correct identity of patient, VIBHA left with primary RNELOINA Lamas contact to call back. RAVI Quiroga
== END 2019-07-21 13:20 | disposition home or self-care (01) | DRG 871 ==
LOC: ED 12:27 → PCU 13:20
PROVIDERS: Admitting Provider Student in an Organized Health Care Education/Training Program; Emergency Provider Emergency Medicine; PCP Family Medicine; Visit Provider Family Medicine
DX: A41.9 Sepsis, unspecified organism (principal); J13 Pneumonia due to Streptococcus pneumoniae; E87.2 Acidosis; Z68.41 Body mass index [BMI] 40.0-44.9, adult; R65.20 Severe sepsis without septic shock; J45.909 Unspecified asthma, uncomplicated; E66.9 Obesity, unspecified; Z79.3 Long term (current) use of hormonal contraceptives; Z79.899 Other long term (current) drug therapy
CPT/HCPCS: 36415; 71046; 71275; 80048; 80202; 83605; 84484; 85025; 85379; 87040; 87070; 87205; 87449; 93005; 94640; 94762; 99251; 99285; J7030; J7040; J7050; Q9967; A4216; G0463; J2405

== ENCOUNTER → 2020-05-22 14:35 | Outpatient (CLI) | payer BC, SELFPAY ==
[2019-07-19 14:12] VITALS: BMI 42.5
== END ==
PROVIDERS: PCP Family Medicine; Visit Provider Family Medicine
DX: U07.1 COVID-19 (principal)
CPT/HCPCS: 87633; 87635; U0003

== ENCOUNTER → 2020-06-04 09:49 | Outpatient (CLI) | payer BC, SELFPAY ==
[2019-07-19 14:12] VITALS: BMI 42.5
--- NOTE | 2020-06-04 09:53 | RAD_ITS ---
STUDY: X-RAY CHEST REASON FOR EXAM: Female, 39 years old. SARS TECHNIQUE: PA and lateral views of the chest. COMPARISON: 07/19/2019 FINDINGS: The lungs are clear and expanded. There is no demonstrated pleural abnormality. Normal size heart. Normal mediastinum and ignacia. Normal visualized pulmonary arteries. Normal visualized aortic arch and descending thoracic aorta. Normal visualized thoracic spine. Normal visualized ribs, clavicles, and shoulders. There is no demonstrated abnormality of the visualized soft tissue structures of the upper abdomen. RAD/Chest PA and Lateral IMPRESSION: Normal x-ray examination of the chest. Electronically Signed: Tahir Grove MD at 8:29 EST Tel , Service support ,
[2020-06-04 12:48] LABS: Absolute Lymphocyte Count 4.08 X10^3/uL (0.83-4.51); Absolute Neutrophil Count 7.2 X10^3/uL (2.0-7.7); Basophil# 0.07 X10^3/uL; Basophil% 0.6 % (0-1); Eosinophil# 0.13 X10^3/uL; Hematocrit 42.9 % (37-47); Hemoglobin 13.8 g/dL (12.0-15.0); Lymphocyte # 4.08 X10^3/ul (4.0); Lymphocyte % 32.4 % (19-41); Mean Corp Hgb Conc 32.2 g/dL (32-36); Mean Corpuscular Hgb 28.2 pg (27.0-32.0); Mean Corpuscular Volume 87.6 fL (81-99); Mean Platelet Vol. 10.3 fl (6.2-12.0); Monocyte# 0.86 X10^3/uL; Monocyte% 6.8 % (0-10); NRBC Flagged by Analyzer 0 % (0-5); Neutrophil % 57.3 % (47-70); Platelet Count 314 K/mm3 (150-450); RBC Distribution Width CV 12.2 % (11.6-14.6); RBC Distribution Width SD 38.8 fl (35.1-43.9); White Blood Count 12.6 K/mm3 (4.4-11.0)
[2020-06-04 12:56] LABS: BNP,B-Type NATRIURETIC PEPTIDE 12.8 pg/mL (0-100)
[2020-06-04 13:07] LABS: AST(SGOT) 8 U/L (15-37); Alanine Aminotransfer ALT/SGPT 39 U/L (13-56); Albumin, Serum 3.6 g/dL (3.2-5.0); Alkaline Phosphatase 116 U/L (45-117); Anion Gap 6 (5-15); BUN 10 mg/dL (7-18); BUN/Creat Ratio 16.8 RATIO (10-20); Calcium,Total 8.4 mg/dL (8.5-10.1); Chloride 106 mmol/L (98-107); Creatinine, Serum 0.59 mg/dL (0.55-1.02); EST Glomerular Filtration Rate 120 mL/min (>60); Est Glom Filt Rate - Afr Amer 145 mL/min (>60); Globulin 3.6 g/dL (2.2-4.2); Glucose 77 mg/dL (74-106); Potassium 3.4 mmol/L (3.5-5.1); Protein, Total 7.2 g/dL (6.4-8.2); Sodium Level 141 mmol/L (136-145)
== END ==
PROVIDERS: PCP Family Medicine; Referring Provider Family Medicine; Visit Provider Family Medicine
DX: R03.0 Elevated blood-pressure reading, without diagnosis of hypertension (principal); B97.21 SARS-associated coronavirus as the cause of diseases classified elsewhere
CPT/HCPCS: 36415; 71046; 80053; 83880; 85025

== ENCOUNTER → 2020-06-17 12:58 | Outpatient (CLI) | payer BC, SELFPAY ==
[2019-07-19 14:12] VITALS: BMI 42.5
--- NOTE | 2020-06-17 13:02 | ECHOCS_ITS ---
Reason For Study: Dizzy Procedure This was a 2D Doppler, Color Flow transthoracic echocardiogram. The study was technically difficult. Contrast injection was performed. Exam performed in department. Left Ventricle Normal LV size. The estimated ejection fraction is 55 %. No evidence for diastolic dysfunction. No regional wall motion abnormalities noted. Right Ventricle Normal RV size. Normal systolic function. Atria Normal left atrium. Normal right atrium. No doppler evidence for ASD. Mitral Valve There is no mitral valve stenosis. No mitral valve insufficiency. Tricuspid Valve There is no tricuspid stenosis. Unable to estimate RV systolic pressure due to inadequate jet, pulmonary artery pressure probably normal. Aortic Valve Trisinus/trileaflet aortic valve. There is no aortic stenosis. No aortic valve insufficiency. Pulmonic Valve There is no pulmonic valvular stenosis. Trivial pulmonic valve insufficiency. Great Vessels Normal aortic root. Pericardium/Pleural No pericardial effusion. Medication 22 gauge I.V. with prn adaptor inserted into left arm. Diluted definity 3ml given slow IV push to enhance endocardial definition. MMode/2D Measurements & Calculations LVIDd: 4.8 cm IVSd: 1.5 cm LA dimension: 3.7 cm LVIDs: 3.2 cm LVPWd: 1.1 cm FS: 33.9 % LAV(MOD-bp): 38.2 ml LA A4 area: 16.7 cm2 RA A4 area: 12.1 cm2 LAV(MOD-bp) Indexed: 17.0 ml/m2 LAV(MOD-sp2): 30.5 ml LAV(MOD-sp4): 44.6 ml Time Measurements MV dec time: 0.25 sec Doppler Measurements & Calculations MV E max johnny: 86.4 cm/sec Lat Peak E' Johnny: 8.5 cm/sec Med Peak E' Johnny: 8.9 cm/sec MV A max johnny: 60.8 cm/sec E/E' lat: 10.2 E/E' med: 9.7 MV E/A: 1.4 MV V2 max: 79.9 cm/sec MV P1/2t max johnny: 80.2 cm/sec Ao V2 max: 161.8 cm/sec MV max P.6 mmHg MV P1/2t: 87.8 msec Ao max P.5 mmHg MV V2 mean: 45.5 cm/sec MV dec slope: 267.6 cm/sec2 MV mean P.0 mmHg MV V2 VTI: 18.8 cm MVA(P1/2t): 2.5 cm2 LV V1 max: 118.5 cm/sec PA V2 max: 123.3 cm/sec LV V1 max P.6 mmHg Interpretation Summary The estimated ejection fraction is 55 %. No evidence for diastolic dysfunction. The study was technically difficult. Contrast injection was performed. Ordering Physician: Ethan Garcia Referring Physician: Ethan Garcia Performed By: Zay Mcbride RCS
== END ==
PROVIDERS: PCP Family Medicine; Referring Provider Family Medicine; Visit Provider Family Medicine
DX: R42 Dizziness and giddiness (principal)
CPT/HCPCS: 93306; Q9957; A4216; C8929

== ENCOUNTER → 2020-08-19 12:04 | Outpatient (CLI) | payer BC, SELFPAY ==
[2019-07-19 14:12] VITALS: BMI 42.5
[2020-08-19 15:18] LABS: Absolute Lymphocyte Count 2.69 X10^3/uL (0.83-4.51); Absolute Neutrophil Count 7.2 X10^3/uL (2.0-7.7); Basophil# 0.05 X10^3/uL; Basophil% 0.5 % (0-1); Eosinophil# 0.12 X10^3/uL; Eosinophils% 1.1 % (0-5); Hemoglobin 12.7 g/dL (12.0-15.0); Lymphocyte # 2.69 X10^3/ul (4.0); Lymphocyte % 25.1 % (19-41); Mean Corp Hgb Conc 31.8 g/dL (32-36); Mean Corpuscular Hgb 27.9 pg (27.0-32.0); Mean Corpuscular Volume 87.9 fL (81-99); Mean Platelet Vol. 11.1 fl (6.2-12.0); Monocyte# 0.56 X10^3/uL; Monocyte% 5.2 % (0-10); NRBC Flagged by Analyzer 0 % (0-5); Neutrophil # 7.24 X10^3/uL (2.7-7.7); Neutrophil % 67.7 % (47-70); Platelet Count 260 K/mm3 (150-450); RBC Distribution Width CV 12.4 % (11.6-14.6); RBC Distribution Width SD 39.8 fl (35.1-43.9); Red Blood Count 4.55 M/mm3 (4.2-5.4); White Blood Count 10.7 K/mm3 (4.4-11.0)
[2020-08-19 15:30] LABS: Vitamin D,25 Hydroxy 10.3 ng/mL
[2020-08-19 15:35] LABS: Anion Gap 7 (5-15); BUN 8 mg/dL (7-18); BUN/Creat Ratio 12.2 RATIO (10-20); Calcium,Total 8.5 mg/dL (8.5-10.1); Chloride 106 mmol/L (98-107); Cholesterol 179 mg/dL (200); Creatinine, Serum 0.66 mg/dL (0.55-1.02); EST Glomerular Filtration Rate 107 mL/min (>60); Est Glom Filt Rate - Afr Amer 129 mL/min (>60); Glucose 91 mg/dL (74-106); High Density Lipoprotein 42 mg/dL; Potassium 3.9 mmol/L (3.5-5.1); Sodium Level 139 mmol/L (136-145); Triglycerides 136 mg/dL; Very Low Density Lipoprotein 27 mg/dL (5-40)
== END ==
PROVIDERS: PCP Family Medicine; Referring Provider Family Medicine; Visit Provider Family Medicine
DX: E88.81 Metabolic syndrome and other insulin resistance (principal); E55.9 Vitamin D deficiency, unspecified; L30.9 Dermatitis, unspecified; I10 Essential (primary) hypertension
CPT/HCPCS: 36415; 80048; 80061; 82306; 85025

== ENCOUNTER → 2021-02-05 | Outpatient (CLI) | payer BC, SELFPAY | END | disposition home or self-care (01) | LOC: LABSPEC 09:21 | PROVIDERS: PCP Family Medicine; Referring Provider Family Medicine; Visit Provider Family Medicine | DX: R09.89 Other specified symptoms and signs involving the circulatory and respiratory systems (principal) | CPT/HCPCS: 87635; U0005; U0003 ==

== ENCOUNTER → 2021-02-12 | Outpatient (CLI) | payer BC, SELFPAY | END | disposition home or self-care (01) | LOC: LABSPEC 08:59 | PROVIDERS: PCP Family Medicine; Visit Provider Family Medicine | DX: R09.89 Other specified symptoms and signs involving the circulatory and respiratory systems (principal) | CPT/HCPCS: 87635; U0005; U0003 ==

== ENCOUNTER → 2021-03-23 | Outpatient (CLI) | payer BC, SELFPAY ==
[2021-03-26 18:04] LABS: HPV APTIMA, High Risk Negative (Negative)
[2021-03-26 18:05] LABS: HPV Reflexed? YES, CHARGE PATIENT
== END | disposition home or self-care (01) ==
LOC: LABSPEC 11:20
PROVIDERS: PCP Family Medicine; Visit Provider Student in an Organized Health Care Education/Training Program
DX: Z12.4 Encounter for screening for malignant neoplasm of cervix (principal)
CPT/HCPCS: 87624; 88175; G0145

== ENCOUNTER → 2021-06-09 | Outpatient (CLI) | payer BC, SELFPAY | END | disposition home or self-care (01) | LOC: LABSPEC 10:19 | PROVIDERS: PCP Family Medicine; Referring Provider Family Medicine; Visit Provider Family Medicine | DX: J39.9 Disease of upper respiratory tract, unspecified (principal) | CPT/HCPCS: 87633; 87635; U0005; U0003 ==

== ENCOUNTER 2022-05-31 15:42 | Emergency (ER) | payer BC, SELFPAY ==
[2022-05-31 15:44] VITALS: BP 163/95; PULSE 88; RESP 16; TEMP 36.6; O2SAT 100; BMI 43.8
[2022-05-31 17:23] VITALS: BP 151/86; PULSE 91; RESP 17; O2SAT 99
[2022-05-31 17:26] LABS: Hematocrit 43.7 % (37-47); Hemoglobin 14.4 g/dL (12.0-15.0); Mean Corpuscular Hgb 28.9 pg (27.0-32.0); Mean Corpuscular Volume 87.6 fL (81-99); Mean Platelet Vol. 9.8 fl (6.2-12.0); POSITIVE COUNT YES; POSITIVE MORPHOLOGY YES; Platelet Count 286 K/mm3 (150-450); RBC Distribution Width CV 12.4 % (11.6-14.6); Red Blood Count 4.99 M/mm3 (4.2-5.4); White Blood Count 15.4 K/mm3 (4.4-11.0)
[2022-05-31 17:30] LABS: Differential Indicated MANUAL DIFF
[2022-05-31 17:36] LABS: Anion Gap 5 (5-15); BUN 8 mg/dL (7-18); Calcium,Total 9.4 mg/dL (8.5-10.1); Chloride 101 mmol/L (98-107); Creatinine, Serum 0.73 mg/dL (0.55-1.02); EST Glomerular Filtration Rate 94 mL/min (>60); Est Glom Filt Rate - Afr Amer 113 mL/min (>60); Estimated Creatinine Clearance 99.62 ml/min; Glucose 121 mg/dL (74-106); Potassium 4.1 mmol/L (3.5-5.1); Sodium Level 137 mmol/L (136-145)
[2022-05-31 17:48] LABS: Lymphocyte 18 % (19-41); Metamyelocyte 6 % (0-1); Monocyte 7 % (0-10); Neutrophil-Band 1 % (0-5); Neutrophil-Segmented 68 % (47-70); Total Cells Counted 100 (MANUAL DIFF)
[2022-05-31 17:49] LABS: Absolute Neutrophil Count 11.5 X10^3/uL (2.0-7.7); Neutrophil # 11.53 X10^3/uL (2.7-7.7)
[2022-05-31 17:50] LABS: Absolute Lymphocyte Count 2.77 X10^3/uL (0.83-4.51); Lymphocyte # 2.77 X10^3/ul (0.83-4.51); Platelet Estimate ADEQUATE (ADEQ); Red Cell Morphology NORM C+C NORMAL (NORM C&C)
--- NOTE | 2022-05-31 18:23 | CT_ITS ---
INDICATION: headache, dizziness, r/u dural venous thrombosis EXAMINATION: CT BRAIN WITH AND WITHOUT CONTRAST - CT Head or Brain WO/W Contrast Injection TECHNIQUE: Multiple axial images were obtained of the brain with and without IV contrast. A radiation dose optimization technique was used for this scan. IV Contrast dosage and agent: COMPARISON: None. FINDINGS: BRAIN AND EXTRA-AXIAL SPACES: No intracranial mass, mass effect, or midline shift. No hemorrhage, hydrocephalus, or acute territorial infarct. SINUSES: Unremarkable as visualized. Clear. MASTOID AIR CELLS: Unremarkable as visualized. Clear. ORBITS: Unremarkable as visualized. CT/Brain/Head W/WO Contrast IMPRESSION: Negative CT Brain with and without contrast. Electronically Signed: Terri Camacho MD at 20:43 EST Reading Location ID and State: [id number] / Tel , Service support ,
[2022-05-31 19:09] VITALS: BP 153/95; PULSE 89; RESP 17; O2SAT 100
[2022-05-31] MEDS: 0.9% Normal Saline 1,000 ML 1000 ML IV (19:09)
[2022-05-31 19:16] LABS: Bacteria 0 SEEN /hpf (None Seen); Mucous, Urine 0 SEEN /hpf (<or=2+); Red Blood Cells-Urine 0 SEEN /hpf (0-5); White Blood Cells 0 SEEN /hpf (0-5)
[2022-05-31 19:26] LABS: Color, Urine Yellow (Yellow); Glucose, Dipstick Normal (Normal); Ketone-Dipstick Negative (Negative); Leukocyte Esterase-Dipstick 100 /ul (Negative); Nitrite-Dipstick Negative (Negative); Occult Blood-Urine 10 /ul (Negative); Protein-Dipstick Negative (Negative); Specific Gravity, Urine 1.015 (1.002-1.030); Urine Bilirubin Dipstick Negative (Negative); Urine Clarity Clear (Clear); Urine Urobilinogen Normal (Normal); Urine pH 6.5 (5.0 - 8.0)
[2022-05-31 19:42] LABS: Internal QC Validated? YES +Cl - CLEAR BKGD; Pregnancy, Urine Negative Negative; Squamous Epithelial Cells - UA 0-5 SEEN /hpf (5-10)
--- NOTE | 2022-05-31 20:00 | RAD_ITS ---
INDICATION: cough EXAMINATION/TECHNIQUE: X-RAY - XR Chest 2 Views COMPARISON: 06/04/2020. FINDINGS: LINES/DEVICES: None. LUNGS: No consolidation, edema or effusion. No pneumothorax. MEDIASTINUM AND CARDIOVASCULAR STRUCTURES: Cardiac silhouette not enlarged. Central airways and mediastinal contour are unremarkable. BONES AND SOFT TISSUES: Unremarkable. RAD/Chest PA and Lateral IMPRESSION: No radiographic evidence of acute cardiopulmonary disease. Electronically Signed: Terri Camacho MD at 20:33 EST Reading Location ID and State: [id number] / Tel , Service support ,
--- NOTE | 2022-05-31 20:59 | EX.ED.DYSGE1 ---
HPI History of Present Illness Chief Complaint: General Illness Informant: patient Narrative Narrative: Patient is a 41-year-old female with history of recent COVID infection in May 19 after home test. At that time she had mild cough symptoms. For the past week she has had episodes of vertigo as well as a buzzing in her head and feeling foggy. She has had episodes of right leg numbness and shaky/tremor in her extremities. She also has had some pressure in her head but denies having a headache. She feels that there are scabs in her nose. She has pressure in her face. Denies any back pain GI symptoms or symptoms. Feel that she is been gaining water weights but also notes that she is been drinking a lot of fluids. Has a history of hypertension and asthma. No other complaints at this time. Denies any fever or chills. [facility] Medical History Asthma Hypertension Home Medications cetirizine 10 mg tablet (Zyrtec) 10 mg PO QDAY allergies 07/17/17 [History Last Taken 07/19/19] mometasone-formoterol HFA 100 mcg-5 mcg/actuation aerosol inhaler (Dulera) 2 puff inhalation BID shortness of breath 07/17/17 [History Last Taken 07/19/19] clotrimazole 10 mg pawel 10 mg mucous membrane TID 14 days #42 tabs 05/28/22 [Rx Last Taken Unknown] amitriptyline 25 mg tablet 25 mg PO QHS 05/31/22 [History Last Taken Unknown] cholecalciferol (vitamin D3) 50 mcg (2,000 unit) tablet (Vitamin D3) 50 mcg PO DAILY 05/31/22 [History Last Taken Unknown] fluoxetine 40 mg capsule (Prozac) 40 mg PO DAILY 05/31/22 [History Last Taken Unknown] fluticasone propionate 50 mcg/actuation nasal spray,suspension (Flonase Allergy Relief) 1 spray intranasal DAILY #16 grams 05/31/22 [Rx Last Taken Unknown] lidocaine HCl 2 % mucosal solution (Lidocaine Viscous) 1 applic mucous membrane Q6H PRN pain #100 mL 05/31/22 [Rx Last Taken Unknown] losartan 100 mg tablet 100 mg PO DAILY 05/31/22 [History Last Taken Unknown] montelukast 10 mg tablet (Singulair) 10 mg PO DAILY 05/31/22 [History Last Taken Unknown] mupirocin 2 % topical ointment 1 applic topical TID #1 tube 05/31/22 [Rx Last Taken Unknown] Allergy/AdvReac Type Severity Reaction Status Date / Time sulfamethoxazole Allergy Anaphylaxis Verified 05/31/22 15:43 [From Bactrim] trimethoprim [From Bactrim] Allergy Anaphylaxis Verified 05/31/22 15:43 Social History Smoking Status: Former smoker ROS ROS ED Constitutional Constitutional ED: Denies chills or fever(s) Eyes Eyes: Denies change in vision ENT ENT ED: Reports other Details: No sores, nasal congestion ; Denies ear pain Cardiovascular Cardiovascular: Denies chest pain Respiratory/Chest Respiratory/Chest: Reports cough; Denies dyspnea Gastrointestinal Gastrointestinal: Denies abdominal pain, nausea or vomiting Genitourinary Genitourinary ED: Denies dysuria or hematuria Musculoskeletal Musculoskeletal: Denies arthralgias or myalgias Integumentary Denies rash Neurologic Neurologic: Reports headache(s) and paresthesias; Denies weakness Psychiatric Psychiatric: Denies depression Hematologic/Lymphatic Hematologic/Lymphatic: Denies easy bleeding or easy bruising EXAM Physical Exam Const Vital Signs: 05/31/22 15:44 05/31/22 17:23 05/31/22 17:23 Temperature 97.8 F Temperature Source Temporal Pulse Rate 88 91 Respiratory Rate 16 17 Respiratory Effort Normal Non-Labored Respiratory Pattern Normal Blood Pressure 163/95 H 151/86 H Blood Pressure Mean 117 107 Pulse Ox 100 99 Oxygen Delivery Method Room Air Room Air 05/31/22 19:09 05/31/22 21:49 Temperature 97.8 F Temperature Source Pulse Rate 89 78 Respiratory Rate 17 16 Respiratory Effort Respiratory Pattern Blood Pressure 153/95 H 148/78 H Blood Pressure Mean 114 Pulse Ox 100 99 Oxygen Delivery Method Room Air Positive well nourished and well developed General Appearance ED: well developed and NAD HEENT Reports TM's clear and moist mucous membranes HEENT Narrative: Scattered vesicles/scabs noted on the right nasal septum, no associated skin involvement Negative for trauma Tympanic Membrane ED: Yes TM's clear Eyes PERRL and EOMs intact bilaterally Eyes Narrative: No nystagmus Neck supple Neck Narrative: No meningeal signs, no nuchal rigidity Chest Wall inspection of chest normal Resp normal respiratory effort and clear to auscultation bilaterally Cardio regular rate, regular rhythm and no murmurs GI normal to inspection, nondistended, normoactive bowel sounds and non-tender Extremity normal to inspection General Extremety ED: Negative for edema or tenderness General Extremity: Negative for edema Neuro oriented x3 and CN's II-XII intact bilaterally Neuro Narrative: Patient reports subjective paresthesias to the right lateral calf Sensorium / Orientation: alert Motor Exam: strength 5/5 throughout; Negative for general weakness Psych mental status grossly normal Mood & Affect: anxious Skin no rashes or lesions noted and no wounds MDM MDM MDM Narrative Medical decision making narrative: Patient is evaluated for sensation of vertigo, fogginess as well as some right leg numbness and shaking/tremor. Patient peers nontoxic. She has a normal neurologic exam. She does have some mild paresthesias that are subjective in the right leg but they seem to be more dermatomal. I do not appreciate any peripheral edema. No palpable cords appreciated. No tremor on my exam. Patient does have any meningeal signs. With family on physical exam is that she does have some vesicles on the right nasal septum. No other mucosal membrane involvement and low suspicion for Zacarias-Irwin syndrome/TENS. With the vesicular nature question of this could be shingles however I do not see any skin involvement. Differential also includes impetigo patient be covered with mupirocin. With patient's vague symptoms and recent COVID I did obtain a CT with and without contrast to look for any structural normalities or signs of dural venous thrombosis. This was normal. Patient does have a mild leukocytosis of 15.4 with no obvious source. No fever however. Patient is encouraged to follow-up with ENT for further evaluation of her symptoms. This time I do not think she requires further hospitalization/monitoring for her symptoms. Counseled that this could be just a sequelae of her recent COVID infection as well. Given return precautions. Clinically patient's leg exam is not consistent with DVT and I do do not think a venous duplex indicated at this time. Patient verbalizes agreement understand with this as there is no associated erythema, pain or cords. Lab Data Attestation: I reviewed the patient's lab results. Labs: Laboratory Results - last 24 hr 05/31/22 05/31/22 05/31/22 17:15 17:15 19:10 WBC 15.4 H RBC 4.99 Hgb 14.4 Hct 43.7 MCV 87.6 MCH 28.9 MCHC 33.0 RDW Std Deviation 39.0 RDW Coeff of Jana 12.4 Plt Count 286 MPV 9.8 Neut % (Auto) Not Reportable Absolute Neuts (auto) 11.5 H Absolute Lymphs (auto) 2.77 Total Counted 100 Neutrophils % (Manual) 68 Band Neutrophils % 1 Lymphocytes % (Manual) 18 L Monocytes % (Manual) 7 Metamyelocytes % 6 H Diff Path Review May foll Platelet Estimate ADEQUATE RBC Morphology NORM C+C Sodium 137 Potassium 4.1 Chloride 101 Carbon Dioxide 31.0 Anion Gap 5 BUN 8 Creatinine 0.73 Estim Creat Clear Calc 99.62 Est GFR (MDRD) Af Amer 113 Est GFR (MDRD) Non-Af 94 BUN/Creatinine Ratio 11.0 Glucose 121 H Calcium 9.4 Urine Color Yellow Urine Clarity Clear Urine pH 6.5 Ur Specific [place] 1.015 Urine Protein Negative Urine Glucose (UA) Normal Urine Ketones Negative Urine Occult Blood 10 H Urine Nitrite Negative Urine Bilirubin Negative Urine Urobilinogen Normal Ur Leukocyte Esterase 100 H Urine RBC 0 SEEN Urine WBC 0 SEEN Ur Squamous Epith Cells 0-5 SEEN Urine Bacteria 0 SEEN Urine Mucus 0 SEEN Urine Test Negative Radiography Diagnostic Testing: Clinical Impression(s) from Imaging Studies Brain CT 05/31/22 18:23 IMPRESSION: Negative CT Brain with and without contrast. Electronically Signed: Terri Camacho MD at 20:43 EST Reading Location ID and State: Rebel Ortiz MD Tel , Service support , Chest X-Ray 05/31/22 20:00 IMPRESSION: No radiographic evidence of acute cardiopulmonary disease. Electronically Signed: Terri Camacho MD at 20:33 EST Reading Location ID and State: Rebel Ortiz MD Tel , Service support , Discharge Plan Triage Chief Complaint: General Illness ED Provider: Linnette Sidhu Dx/Rx/DC Orders Clinical Impression: Vesicles, Pain of nose, Dizziness, Paresthesia of right lower extremity Instructions: ED Dizziness, Uncertain Cause, ED Impetigo, ED Shingles (Herpes Zoster), ED Paraesthesias Prescriptions: New mupirocin 2 % ointment 1 applic topical TID Qty: 1 0RF fluticasone propionate [Flonase Allergy Relief] 50 mcg/actuation spray,suspension 1 spray intranasal DAILY Qty: 16 0RF Rx Instructions: administer into each nostril lidocaine HCl [Lidocaine Viscous] 2 % solution 1 applic mucous membrane Q6H PRN (Reason: pain) Qty: 100 0RF Rx Instructions: apply to inside of nose No Action cetirizine [Zyrtec] 10 mg tablet 10 mg PO QDAY mometasone-formoterol [Dulera] 100-5 mcg/actuation HFA aerosol inhaler 2 puff INHALATION BID clotrimazole 10 mg pawel 10 mg mucous membrane TID 14 Days Qty: 42 0RF fluoxetine [Prozac] 40 mg Capsule 40 mg PO DAILY amitriptyline 25 mg Tablet 25 mg PO QHS montelukast [Singulair] 10 mg Tablet 10 mg PO DAILY losartan 100 mg Tablet 100 mg PO DAILY cholecalciferol (vitamin D3) [Vitamin D3] 50 mcg (2,000 unit) Tablet 50 mcg PO DAILY Stand Alone Forms: ED Work / School Excuse Primary Care Provider: Karl Atwood Referrals: Karl Atwood MD [Primary Care Provider] - Sulaiman Good MD [Med Staff - Active Staff] - 3-5 Days if not improving Activity Restrictions/Additional Instructions: Use lidocaine given today and apply it with a Q-tip to the inside of your nose up to 4 times a day for pain. Will be covered for secondary bacterial infection with the mupirocin. I can use a Q-tip and apply 3 times a day to the sores on her nose. Use a humidifier as we discussed. Return to the ER with any worsening symptoms. Disposition Disposition: Home, Self Care Discharge Date/Time: 05/31/22 22:04
[2022-05-31 21:49] VITALS: BP 148/78; PULSE 78; RESP 16; TEMP 36.6; O2SAT 99
[2022-05-31] MEDS: Lidocaine Jelly 2% 20 ML Syringe (URO-JET) 1 APPLIC TOPICAL (21:59)
[2022-06-01 13:00] LABS: Pathologist Review Reviewed
== END 2022-05-31 22:04 | disposition home or self-care (01) ==
PROVIDERS: Emergency Medicine; Emergency Provider Emergency Medicine; PCP Family Medicine; Visit Provider Emergency Medicine
DX: R42 Dizziness and giddiness (principal); J34.89 Other specified disorders of nose and nasal sinuses; R20.2 Paresthesia of skin; I10 Essential (primary) hypertension; J45.909 Unspecified asthma, uncomplicated; Z79.899 Other long term (current) drug therapy; Z86.16 Personal history of COVID-19; Z87.891 Personal history of nicotine dependence
CPT/HCPCS: 70470; 71046; 80048; 81001; 81025; 85025; 96360; 99283; J7030; Q9967

== ENCOUNTER → 2024-07-12 | Outpatient (CLI) | payer BC, SELFPAY | END | disposition home or self-care (01) | LOC: LABSPEC 10:10 | PROVIDERS: PCP Family Medicine; Referring Provider Nurse Practitioner Family; Visit Provider Nurse Practitioner Family | DX: N89.8 Other specified noninflammatory disorders of vagina (principal) | CPT/HCPCS: 87070; 87077; 87205 ==

== ENCOUNTER → 2024-07-17 | Outpatient (CLI) | payer BC, SELFPAY ==
--- NOTE | 2024-07-17 14:25 | BI_ITS ---
PROCEDURE: DIAG MAMM W/CAD, BILAT REASON FOR EXAM: Increased density in the left breast. TECHNIQUE: Bilateral diagnostic digital breast tomosynthesis with 2D and 3D images. Computer aided detection. COMPARISON: Baseline mammogram. FINDINGS: The breasts are heterogeneously dense which may obscure small masses. No mass lesion is seen. With the patient's history of a palpable lump in the deep medial aspect of the left breast, correlati on with ultrasound recommended. BI/DIAG MAMM W/CAD, BILAT IMPRESSION: With the patient's history of a palpable lump in the left breast, correlation w ith ultrasound recommended. BI-RADS 0: INCOMPLETE - NEED ADDITIONAL IMAGING EVALUATION. Follow-up code: Ultrasound Recommended Reading Location: [place] [id number]
--- NOTE | 2024-07-17 14:25 | US_ITS ---
EXAM: BREAST LIMITED UNILATERAL CLINICAL HISTORY: Palpable lump in the inferior medial aspect of the left breast. COMPARISON: Comparison is made with prior mammogram dated July 17, 2024. TECHNIQUE: Imaging of the inferior medial aspect of the left breast was performed. FINDINGS: No sonographic abnormality is seen. US/Breast Limited Unilateral IMPRESSION: No sonographic abnormality is seen. Reading Location: [facility]
== END | disposition home or self-care (01) ==
PROVIDERS: PCP Family Medicine; Referring Provider Nurse Practitioner Family; Visit Provider Nurse Practitioner Family
DX: N63.20 Unspecified lump in the left breast, unspecified quadrant (principal)
CPT/HCPCS: 76642; 77062; 77066; G0279